=== PATIENT | female | born 1970 | race Hispanic/Latino ===

== ENCOUNTER 2018-07-29 10:50 | Day surgery (SDC) | payer BC, SELFPAY ==
--- NOTE | 2018-07-22 15:16 | HP.PCM_ITS ---
History and Physical Date of Admission: 07/29/18 Pre-Op History and Physical ? HPI: The patient is a 48 year old female presenting for pre-operative visit. She is scheduled for?Hysteroscopy D&C, possible fibroid resection, for?AUB/menorrhagia, fe def. anemia on?07/29/18. ??Procedure discussed along with risks, benefits and complications. ?Other alternatives discussed for management. Consent form signed??Yes.? PAST?MEDICAL?HISTORY PAST MEDICAL HISTORY Diagnosis Date ? Anemia ? ? Coccydynia ? ? CYST ? ? BREAST LEFT ? Depression ? ? Diabetes mellitus, type 2 (HCC) ? ? GERD (gastroesophageal reflux disease) ? ? Hyperlipidemia ? ? Hypertension ? ? Migraine, unspecified, with intractable migraine, so stated, without mention of status migrainosus ? ? Migraine ? Obesity ? ? PAST ? ? HISTORY OF EARLY LABOR/DELIVERY@ 35WKS X2 ? ? PAST?SURGICAL?HISTORY PAST SURGICAL HISTORY Procedure Laterality Date ? DELIVERY ONLY ? ? ? PAST SURGICAL HISTORY OF ? ? ? cystectomy of left breast ? ? CURRENT?MEDICATIONS ? Current Outpatient Medications: norethindrone (AYGESTIN) 5 mg tablet Take 1 tablet by mouth once daily. may increase to bid or tid as needed to slow vaginal bleeding Disp: 30 tablet Rfl: 1 meclizine (ANTIVERT) 25 mg tab Take 1 tablet by mouth three times daily as needed. as needed for dizziness Disp: 20 tablet Rfl: 0 vit [id number] (PRENATE MINI, FERR ASP GLYCIN,) 18-1-350 mg cap Take 1 Dose by mouth once daily. Disp: 30 capsule Rfl: 12 insulin detemir U-100 (LEVEMIR FLEXTOUCH U-100 INSULN) 100 unit/mL (3 mL) inpn injection Inject 28 Units subcutaneously daily at bedtime. Disp: 18 mL Rfl: 1 lisinopril (ZESTRIL, PRINIVIL) 5 mg tablet Take 0.5 tablets by mouth once daily. Disp: 45 tablet Rfl: 1 ferrous gluconate 324 mg (37.5 mg iron) tablet Take 1 tablet by mouth three times daily with meals. Disp: 90 tablet Rfl: 2 esomeprazole (NEXIUM 24HR) 20 mg capsule Take 2 capsules by mouth DAILY (6 AM). Disp: 90 capsule Rfl: 1 simvastatin (ZOCOR) 40 mg tablet Take 1 tablet by mouth daily at bedtime. For cholesterols. Disp: 90 tablet Rfl: 0 metFORMIN (GLUCOPHAGE) 1,000 mg tablet Take 1 tablet by mouth twice daily with meals. Disp: 180 tablet Rfl: 1 Insulin [place], Disposable, (BD ULTRA-FINE SURJIT PEN NEEDLES) 32 gauge x 5/32 ndle Use one needle for each dose, ?one time daily. To use with Levemir flextouch pen Disp: 100 Each Rfl: 11 aspirin, enteric coated (ASPIRIN, ENTERIC COATED) 81 mg EC tablet Take 1 tablet by mouth once daily. Disp: 90 tablet Rfl: 3 fluticasone (FLONASE) 50 mcg/actuation nasal spray Use 2 Sprays in each nostril once daily. Disp: 3 Bottle Rfl: 1 nitroglycerin sublingual (NITROQUICK) 0.4 mg SL tablet Dissolve 1 tablet under the tongue every 5 minutes as needed for Chest Pain. Disp: 1 Bottle of 25 Rfl: 0 loratadine (CLARITIN) 10 mg tablet Take 1 tablet by mouth once daily. Disp: 30 tablet Rfl: 11 COMPOUNDED PRESCRIPTION GLUCOMETER Disp: 1 Rfl: 0 COMPOUNDED PRESCRIPTION GLUCOMETER TEST STRIPS Disp: 1 DRUM Rfl: 3 Acetone (Urine) Test (KETONE URINE TEST) IN VITRO Strp USE DIRECTED Disp: 1 DRUM Rfl: 1 COMPOUNDED PRESCRIPTION LANCETS Disp: 1 BOX Rfl: 3 ? No current facility-administered medications for this visit.? ? ALLERGIES:?Seasonal Allergies ? PERSONAL HISTORY:? SOCIAL?HISTORY Social History ??Socioeconomic History ?Marital status: ?Spouse name: FABBY ?Number of children: 4 ?Years of education: 6 ?Highest education level: Not on file ??Social Needs ?Financial resource strain: Not on file ?Food insecurity - worry: Not on file ?Food insecurity - inability: Not on file ?Transportation needs - medical: Not on file ?Transportation needs - non-medical: Not on file ??Occupational History ?Occupation: HOMEMAKER ??Tobacco Use ?Smoking status: Never Smoker ?Smokeless tobacco: Never Used ??Substance and Sexual Activity ?Alcohol use: No ?Drug use: No ?Sexual activity: Yes ?Partners: Male ? control/protection: Vasectomy ??Other Topics ?Concerns: ?Not on file ??Social History Narrative ?From [place]. ?Does not speak [place]. ?Cannot read or write. ? FAMILY HISTORY:? FAMILY?HISTORY FAMILY HISTORY Problem Relation Age of Onset ? Heart Mother ?CHF ? Lipids Mother ? ? Psychiatry Mother ?depression ? Diabetes Father ? ? Cancer Brother ? ? REVIEW OF SYMPTOMS: GENERAL: denies fevers or chills ENDOCRINOLOGY: has not been on steroids Cardiology : denies palpitations or chest pain Respiratory: denies SOB or cough Hematology: denies history of prolonged bleeding or easy bruising or VTE Allergy: Denies history of personal or family history of allergy to anesthesia ? ? PHYSICAL EXAMINATION: ? VITALS:?Blood pressure 110/76, pulse 76, resp. rate 16, height 5' 1 (1.549 m), weight 203 lb (92.1 kg). ? GENERAL:??The patient is well nourished, well hydrated in no acute distress. ?, The patient is oriented to time, place, and person. NECK:?Supple. No lynphadenopathy, normal thyroid, no thyromegaly. LUNGS:?Clear to auscultation bilaterally. no wheezes, rhonchi or rales HEART:?Regular rate and rhythm, Normal heart sounds and No murmurs or gallops ? PELVIC US 06/21/18: ? Report Summary: Overall impression: uterus top normal size, two intramural fibroids noted- largest ?one with greatest dimension of 3.9cm located in lower uterine segment. Endometrial thickness 6.1mm- difficult to evaluate due to fibroids and slightly heterogenous appearance. Right ovary with 2cm complex appaering cyst- good blood flow to ovary left ovary appears normal No free fluid noted. Recommendations / therapy: recommend repeat ultrasound in 3 months to monitor right ovarian cyst for stability. Indication: Abnormal Uterine Bleeding. History: Last menstrual period: 06/08/2018. 14th day of cycle. Gynecological Ultrasonography: Uterus: normal, anteverted. Size: Longitudinal 108 mm. Anterio- posterior 66 mm. Transverse 67 mm. Volume:?? 250.1 ml. Fibroids: Fibroid 1: Size: 39 mm x 25 mm x 29 mm. Type: anterior. Position: left lower uterine segment. Fibroid 2: Size: 20 mm x 15 mm x 18 mm. Type: posterior. Position: left mid uterus. Endometrium: endometrial cavity could not be seen clearly. Endometrium thickness total: 6.1 mm. Right Ovary: normal. Visible. Right Ovary size: 31 mm x 32 mm x 22 mm. Volume: 11.4 ml. Cysts Right Ovary: Cyst 1: Mean value: 20 mm. D1: 22 mm. D2: 17 mm. D3: 22 mm. Volume: 4 ml. Complex cyst, with shadowing. Left Ovary: normal. Visible. Morphology: normal morphology. Left Ovary size: 19 mm x 17 mm x 15 mm. Volume: 2.5 ml. [place] de Sac / Pouch of Dominic: no free fluid visible. ? IMPRESSION:?menorrhagia, uterine fibroids ? PLAN:???hysteroscopy dilation and curettage, possible fibroid resection with hysteroscopic resection device, insertion of Mirena IUD.? ? I have reviewed and updated past medical and surgical history, medications and allergies? Shannan Flores M.D.
[2018-07-22 16:33] LABS: Anion Gap 5 (5-15); BUN 9 mg/dL (7-18); BUN/Creat Ratio 10.2 RATIO (10-20); Calcium,Total 8.3 mg/dL (8.5-10.1); Chloride 108 mmol/L (98-107); Creatinine, Serum 0.88 mg/dL (0.55-1.02); EST Glomerular Filtration Rate 72 mL/min (>60); Est Glom Filt Rate - Afr Amer 88 mL/min (>60); Glucose 191 mg/dL (74-106); Potassium 3.9 mmol/L (3.5-5.1); Sodium Level 138 mmol/L (136-145)
[2018-07-22 16:34] LABS: Hemoglobin A1c 7.2 % (4.2-6.3)
[2018-07-22 17:17] LABS: Hematocrit 37.9 % (37-47); Hemoglobin 11.4 g/dl (12.0-15.0); Mean Corp Hgb Conc 30.1 g/gl (32-36); Mean Corpuscular Hgb 21.8 pg (27.0-32.0); Mean Corpuscular Volume 72.5 fL (81-99); Platelet Count 251 K/mm3 (150-450); Red Blood Count 5.23 M/mm3 (4.2-5.4); White Blood Count 6.3 K/mm3 (4.4-11.0)
[2018-07-22 17:18] LABS: Scan Indicated on CBC? Y/N YES- FLAGS NOTED
[2018-07-22 17:21] LABS: International Normalized Ratio 1.1; Prothrombin Time (Protime)PT. 13.6 SECONDS (11.7-14.9)
[2018-07-22 17:41] LABS: Differential Comment SCANNED
[2018-07-29] VITALS (8 sets, daily range): BP systolic 104–127; BP diastolic 40–87; PULSE 66–94; RESP 15–18; TEMP 36.6–36.8; O2SAT 95–100
[2018-07-29 11:31] LABS: Internal QC Validated? YES +Cl - CLEAR BKGD; Pregnancy, Urine Negative Negative
[2018-07-29] MEDS: Gabapentin 600 MG Tablet PO (11:37)
[2018-07-29] MEDS: Celecoxib 200 MG Capsule PO (11:37)
--- NOTE | 2018-07-29 12:35 | EMB_PTH ---
PATIENT: AFSANEH JOHNSON LOC: [facility] [place][id number] AGE/SX: 48/F ROOM: RE07/29/[address]: Dr. Shannan Flores MD : [id number] BED: DIS: 07/29/2018 SPEC #: [id number] RECD: 07/30/18 07:32 STATUS: MARCUS DENYS #: [id number] MERY: 07/29/18 12:[address]: Shannan Flores DEPT: SURGICAL PATHOLOGY RECD BY: Chepe Hartley ENTERED: 07/30/18 10:05 SP TYPE: ENDOM BX/C ONEIDA DR: SANJAY Shrestha Tissues: Endometrium, NOS Procedures: Surgery Specimen Level IV HEADER OPERATION: Hysteroscopy, dilation and curettage, IUD insertion PRE-OP DIAGNOSIS: Abnormal uterine bleeding, menorrhagia TISSUE SUBMITTED: Endometrial curettings MICROSCOPIC DIAGNOSIS Endometrial curettings: Mildly disordered proliferative endometrium. Fragments of benign endocervical mucosa. SJ:sonny 08/02/18 MICROSCOPIC DESCRIPTION Slides are reviewed. GROSS DESCRIPTION Received in fixative is one container labeled with the patient's name and designated endometrial curettings. The specimen consists of multiple irregular fragments of light to dark bettencourt soft tissue that in aggregate measure 2 x 2 x 0.3 cm. The specimen is totally submitted in one cassette. / AM:sonny 07/30/18 TC:5 CPT: 01712
[2018-07-29 13:10] LABS: Bedside Glucose 166 mg/dL (70-110)
--- NOTE | 2018-07-29 15:23 | PCM.DC.D&C ---
Discharge Diet: No Restrictions Discharge Activity: Return to Normal Activity, May Shower, May Take a Tub Bath - in 2 weeks. Allergies/Adverse Reactions: Allergies No Known Allergies Allergy (Verified 07/22/18 09:58) Medications to take at Discharge Esomeprazole Magnesium [Nexium 24Hr] 20 mg PO DAILY 07/22/18 Insulin Detemir [Levemir FlexPen] 23 units SC QHS 07/22/18 Lisinopril [Prinivil] 2.5 mg PO DAILY 07/22/18 Metformin HCl [Glucophage] 1,000 mg PO BIDCM 07/22/18 Simvastatin [Zocor] 40 mg PO QHS 07/22/18 Hydrocodone Bitart/Apap 5-325 [[place] 5/325] 1 - 2 tablet PO Q6H PRN PRN 2 Days #8 tablet 07/29/18 Ibuprofen [Motrin] 600 mg PO Q6H PRN #60 tablet 07/29/18 The following prescriptions were given: Hydrocodone Bitart/Apap 5-325 [[place] 5/325] 1 - 2 tablet PO Q6H PRN PRN 2 Days #8 tablet PRN Reason: Mild-Moderate Pain (1-5/10) Ibuprofen [Motrin] 600 mg PO Q6H PRN #60 tablet PRN Reason: Pain Orders to be completed after discharge: Type & Screen Time Frame: 07/22/18, Facility: [facility], Location: Laboratory Partial Thromboplast Time Time Frame: 07/22/18, Location: Laboratory Hemoglobin A1c Time Frame: 07/22/18, Location: Laboratory Basic Metabolic Profile (BMP) Time Frame: 07/22/18, Location: Laboratory CBC-Complete Blood Cnt No Diff Time Frame: 07/22/18, Location: Laboratory Prothrombin Time w/INR Time Frame: 07/22/18, Location: Laboratory Primary Care Physician: Rowan Sidhu PA [Primary Care Provider] - Test Results: Test results from this visit will be discussed in further detail at your follow-up appointment, if applicable. Please Follow Up With: Shannan Flores MD - [phone] When: 4-6 weeks or as needed
--- NOTE | 2018-07-29 15:42 | OP.PCM_ITS ---
Report of Operation Date of Procedure: 07/29/18 Pre-Operative Diagnosis: Menorrhagia, uterine fibroids, chronic blood loss fe deficiency anemia Post-Operative Diagnosis: same Surgery/Procedure Performed:: Hysteroscopy, dilation and curettage and insertion of Mirena intrauterine device Description of Surgical Findings:: Well-appearing uterine cavity, cervix and vagina. Both tubal ostia were identified. No polyps or fibroids noted in the endometrial cavity. supervisor electronics testing: None Type of Anesthesia:: General Anesthesiologist: Henny Taylor Special Medications: none Specimen's removed: endometrial curetteings Drains: none Estimated Blood Loss (mL): 10cc Fluids Replaced: 1500cc Description of Procedure: The patient was taken to the OR where she was prepped and draped in dorsal lithotomy position. The weighted speculum was placed in the vagina and the anterior lip of the cervix was grasped with a single-tooth tenaculum. A paracervical block was administered with 1% lidocaine with 1-100,000 epinephrine solution. The cervix was dilated serially with Hegar dilators. The 7mm hysteroscope was placed into the uterine cavity and the above findings were noted. Bilateral tubal ostia were identified. The hysteroscope was removed. A gentle sharp curettage was done of the uterine cavity. The endometrial curettings were handed off. The Mirena intrauterine device was inserted in the usual sterile fashion. The strings were trimmed to 2 cm. Uterus sounded to 10 cm. the instruments were removed from the vagina. The specimen was handed off and sent to pathology. All sponge and needle counts were correct. Vaginal sweep was performed by me. The patient was awakened and taken to the recovery room in stable condition. Hysteroscopic ins: 100cc normal saline Hysteroscopic outs:100cc Findings: Endometrial cavity: Normal, no fibroids or polyps noted Cervix: Normal Vagina: Normal Grafts/Implants Used: Mirena IUD - Complications none - Admit VTE Documentation VTE Present on Admission: No VTE Mechan Device Prophylaxis: SCD's VTE Pharm Prophylaxis ordered?: No Reason prophylaxis not ordered:: Procedure Not Indicated
--- NOTE | 2018-07-29 16:20 | RAD_ITS ---
STUDY: X-RAY CHEST REASON FOR EXAM: Female, 48 years old. Increased shortness of breath after surgery. TECHNIQUE: Single AP portable upright view of the chest. COMPARISON: None. FINDINGS: The lungs are clear, but under expanded. There is no demonstrated pleural abnormality. There is borderline to mild cardiac enlargement. Normal mediastinum and alessandro. Normal visualized pulmonary arteries. Normal visualized aortic arch and descending thoracic aorta. Normal visualized thoracic spine. Normal visualized ribs, clavicles, and shoulders. There is no demonstrated abnormality of the visualized soft tissue structures of the upper abdomen. RAD/Chest 1 View (Portable) IMPRESSION: Suboptimal inspiratory effort. Borderline to mild cardiac enlargement. No pneumonic infiltrate or CHF. Electronically Signed: Regino Todd MD at 17:17 EDT , Service support ,
[2018-07-29] MEDS: Ipratropium/Albuterol Sulfate 3 ML AMPUL.NEB INHALATION (16:21)
== END 2018-07-29 18:01 | disposition home or self-care (01) ==
LOC: SDC 10:50 → AC 10:52
PROVIDERS: Anesthesiology; Family Provider Physician Assistant; PCP Physician Assistant; Referring Provider Obstetrics & Gynecology; Visit Provider Obstetrics & Gynecology
PROC: (CPT 58300; principal; 2018-07-29 12:20)
DX: N92.0 Excessive and frequent menstruation with regular cycle (principal); D50.9 Iron deficiency anemia, unspecified; D50.0 Iron deficiency anemia secondary to blood loss (chronic); E11.9 Type 2 diabetes mellitus without complications; I10 Essential (primary) hypertension; E78.00 Pure hypercholesterolemia, unspecified; K21.9 Gastro-esophageal reflux disease without esophagitis; E66.9 Obesity, unspecified; Z79.4 Long term (current) use of insulin; Z79.82 Long term (current) use of aspirin; Z79.899 Other long term (current) drug therapy
CPT/HCPCS: 58300; 58558; 36415; 71045; 80048; 81025; 82962; 83036; 85027; 85610; 85730; 86850; 86900; 88305; 94640; J7120; J2405

== ENCOUNTER 2021-10-23 09:46 | Emergency (ER) | payer OTHER, SELFPAY ==
[2021-10-23 09:46] VITALS: BP 120/61; PULSE 70; RESP 18; TEMP 36.3; O2SAT 98; BMI 31.1
--- NOTE | 2021-10-23 10:16 | EKG12_ITS ---
Test Reason : WEAKNESS Blood Pressure : / mmHG Vent. Rate : 063 BPM Atrial Rate : 063 BPM P-R Int : 152 ms QRS Dur : 082 ms QT Int : 428 ms P-R-T Axes : 038 -82 027 degrees QTc Int : 437 ms Normal sinus rhythm Left axis deviation Low voltage QRS Poor R wave progression Abnormal ECG Confirmed by EVANS MONTANO, JOSE ALFREDO ([id number]), international editorial producer NASIR STEINER ([id number]) on 10/28/2021 1:10:02 PM Referred By: Confirmed By:JOSE ALFREDO KRUEGER MD
--- NOTE | 2021-10-23 10:20 | ED.VIS.GI ---
HPI HPI - GI History of Present Illness Chief Complaint: Nausea/Vomiting Informant: patient and other (Voice Pathologist) Nausea/Vomiting/Emesis GI Symptom: Positive for Nausea and Vomiting Onset: Yesterday Diarrhea/Melena/Hematochezia GI Symptom: Positive for Diarrhea; Negative for Melena or Hematochezia Onset: Yesterday Associated Symptoms Associated Symptoms: Negative for Dysuria, Frequency, Hematuria or Urgency Narrative Narrative: Patient with nausea vomiting and diarrhea that started yesterday. Difficult to keep anything down but she did eat a little something last night and took her insulin. She is a type II diabetic. Has not been checking her blood sugars at all. She is on oral medications and was started on insulin last month and has felt nauseated ever since, but became worse with vomiting yesterday. No fevers or chills. No known sick contacts. No abdominal pain, chest pain, shortness of breath. She is urinating but not a lot. [facility] Medical History Diabetes Home Medications esomeprazole magnesium 20 mg tablet,delayed release (Nexium 24HR) 40 mg PO DAILY 07/22/18 [History Last Taken Unknown] insulin detemir U-100 100 unit/mL (3 mL) subcutaneous pen (Levemir FlexTouch U-100 Insulin) 40 units subcut QHS 07/22/18 [History Last Taken Unknown] metformin 1,000 mg tablet 1,000 mg PO BIDCM 07/22/18 [History Last Taken Unknown] ibuprofen 600 mg tablet 600 mg PO Q6H PRN Pain ##60 07/29/18 [Rx Last Taken Unknown] aspirin 81 mg tablet 81 mg PO DAILY 10/23/21 [History Last Taken Unknown] celecoxib 100 mg capsule (Celebrex) 100 mg PO BID 10/23/21 [History Last Taken Unknown] dulaglutide 1.5 mg/0.5 mL subcutaneous pen injector (Trulicity) 1.5 mg subcut QWEEK 10/23/21 [History Last Taken Unknown] norethindrone acetate 5 mg tablet (Aygestin) 5 mg PO DAILY 10/23/21 [History Last Taken Unknown] ondansetron 4 mg disintegrating tablet 8 mg PO Q8H PRN PRN Nausea #20 tabs 10/23/21 [Rx Last Taken Unknown] Allergy/AdvReac Type Severity Reaction Status Date / Time No Known Allergies Allergy Verified 10/23/21 10:19 Social History Smoking Status: Never smoker ROS ROS ED Constitutional Constitutional ED: Reports malaise; Denies chills or fever(s) Eyes Eyes: Denies change in vision or diplopia ENT ENT ED: Denies rhinorrhea or sore throat Cardiovascular Cardiovascular: Denies chest pain or palpitations Respiratory/Chest Respiratory/Chest: Denies cough or dyspnea Gastrointestinal Gastrointestinal: Reports diarrhea, nausea and vomiting; Denies abdominal pain Genitourinary Genitourinary ED: Denies dysuria or hematuria Musculoskeletal Musculoskeletal: Denies back pain or neck pain Integumentary Denies abscess or rash Neurologic Neurologic: Denies headache(s), paresthesias or weakness Psychiatric Psychiatric: Denies anxiety or suicidal thoughts EXAM Physical Exam Const Vital Signs: 10/23/21 09:46 10/23/21 12:23 Temperature 97.3 F L Temperature Source Temporal Pulse Rate 70 59 L Respiratory Rate 18 Blood Pressure 120/61 115/71 Blood Pressure Mean 80 85 Pulse Ox 98 Oxygen Delivery Method Room Air Positive well nourished, well developed and obese Constitutional Narrative: Ill-appearing, no distress General Appearance ED: well developed Nutritional Appearance: obese HEENT Reports moist mucous membranes normocephalic and atraumatic Eyes PERRL and EOMs intact bilaterally Neck full ROM and supple Resp normal respiratory effort and clear to auscultation bilaterally Cardio regular rate, regular rhythm and no murmurs Rate: Negative for tachycardic GI non-tender and non-distended Auscultation: normoactive bowel sounds Palpation: soft Back/Spine no CVA tenderness General Back: other FROM Extremity normal to inspection General Extremety ED: Negative for edema, pulses abnormal or tenderness General Extremity: Negative for edema or pulses abnormal Neuro oriented x3, CN's II-XII intact bilaterally, no sensory deficits noted and gait normal Sensorium / Orientation: awake and alert Motor Exam: strength 5/5 throughout Skin no rashes or lesions noted and no wounds MDM MDM MDM Narrative Medical decision making narrative: Patient was given IV fluids, Zofran, insulin. On reevaluation her blood sugar is down to 241, she is tolerating oral fluids, she feels much better. Given the normal labs except for glucose, I suspect this is a viral infection. Reassured, given a prescription for Zofran, advised to check her blood sugars at home and take her insulin, decreasing the dose if she needs to if she is not able to eat close to a normal diet, she has questions about the dose she is advised to call her PCP, she is comfortable with this plan. All communication was done through a live lamp decorator. Lab Data Attestation: I reviewed the patient's lab results. Labs: Laboratory Results - last 24 hr 10/23/21 10/23/21 10/23/21 10:10 10:10 10:14 WBC 7.6 RBC 5.09 Hgb 14.6 Hct 43.7 MCV 85.9 MCH 28.7 MCHC 33.4 RDW Std Deviation 39.8 RDW Coeff of Guru 12.8 Plt Count 280 MPV 10.2 Immature Gran % (Auto) 0.400 Neut % (Auto) 77.4 H Lymph % (Auto) 16.1 L [place] % (Auto) 5.3 Eos % (Auto) 0.5 Baso % (Auto) 0.3 Absolute Neuts (auto) 5.9 Absolute Lymphs (auto) 1.22 Nucleated RBC % 0 Sodium 137 Potassium 3.9 Chloride 103 Carbon Dioxide 28.0 Anion Gap 6 BUN 10 Creatinine 0.54 L Estim Creat Clear Calc 105.24 Est GFR (MDRD) Af Amer 151 Est GFR (MDRD) Non-Af 124 BUN/Creatinine Ratio 18.3 Glucose 278 H Calcium 8.6 Total Bilirubin 0.60 AST 10 L ALT 18 Alkaline Phosphatase 96 Troponin I High Sens 3 Total Protein 6.9 Albumin 3.1 L Globulin 3.8 Albumin/Globulin Ratio 0.8 L Lipase 55 L Urine Color Urine Clarity Urine pH Ur Specific [place] Urine Protein Urine Glucose (UA) Urine Ketones Urine Occult Blood Urine Nitrite Urine Bilirubin Urine Urobilinogen Ur Leukocyte Esterase Urine RBC Urine WBC Ur Squamous Epith Cells Urine Bacteria Urine Mucus POC Glucose 309 H 10/23/21 10/23/21 11:30 11:34 WBC RBC Hgb Hct MCV MCH MCHC RDW Std Deviation RDW Coeff of Guru Plt Count MPV Immature Gran % (Auto) Neut % (Auto) Lymph % (Auto) [place] % (Auto) Eos % (Auto) Baso % (Auto) Absolute Neuts (auto) Absolute Lymphs (auto) Nucleated RBC % Sodium Potassium Chloride Carbon Dioxide Anion Gap BUN Creatinine Estim Creat Clear Calc Est GFR (MDRD) Af Amer Est GFR (MDRD) Non-Af BUN/Creatinine Ratio Glucose Calcium Total Bilirubin AST ALT Alkaline Phosphatase Troponin I High Sens Total Protein Albumin Globulin Albumin/Globulin Ratio Lipase Urine Color Yellow Urine Clarity Sl. Cloudy Urine pH 6.5 Ur Specific [place] 1.010 Urine Protein Negative Urine Glucose (UA) 1000 H Urine Ketones 5 H Urine Occult Blood Negative Urine Nitrite Negative Urine Bilirubin Negative Urine Urobilinogen Normal Ur Leukocyte Esterase 25 H Urine RBC 0 SEEN Urine WBC 0-5 SEEN Ur Squamous Epith Cells 0-5 SEEN Urine Bacteria RARE Urine Mucus RARE POC Glucose 241 H EKG Initial EKG: Attestation: I personally reviewed and interpreted this EKG as follows: Interpretation: Sinus Rhythm, No Acute Injury Pattern and LAFB Discharge Plan Triage Chief Complaint: Nausea/Vomiting ED Provider: Rustam Rios Dx/Rx/DC Orders Clinical Impression: Nausea, vomiting, and diarrhea, Hyperglycemia due to type 2 diabetes mellitus Instructions: ED Diabetic Hyperglycemia, ED Vomiting and Diarrhea ... Prescriptions: New ondansetron [ondansetron] 4 MG tablet 8 mg PO Q8H PRN PRN (Reason: Nausea) Qty: 20 0RF No Action metformin 1,000 MG tablet 1,000 mg PO BIDCM Levemir FlexTouch U-100 Insuln 100 UNITS/ML insulin pen 40 units subcut QHS esomeprazole magnesium [Nexium 24HR] 20 MG tablet,delayed release (DR/EC) 40 mg PO DAILY ibuprofen 600 MG tablet 600 mg PO Q6H PRN (Reason: Pain) Qty: 60 1RF aspirin 81 mg Tablet 81 mg PO DAILY norethindrone acetate [Aygestin] 5 mg Tablet 5 mg PO DAILY celecoxib [Celebrex] 100 mg Capsule 100 mg PO BID Trulicity 1.5 mg/0.5 mL Pen Injector 1.5 mg SUBCUT QWEEK Primary Care Provider: Rowan Sidhu Referrals: Rowan Sidhu PA [Primary Care Provider] - 3-5 Days Disposition Disposition: Home, Self Care Discharge Date/Time: 10/23/21 12:58
[2021-10-23 10:21] LABS: Bedside Glucose 309 mg/dL (74-106)
--- NOTE | 2021-10-23 10:24 | NURSING ---
NO OLD EKGS
[2021-10-23] MEDS: 0.9% Normal Saline 1,000 ML 1000 ML IV (10:32)
[2021-10-23] MEDS: Ondansetron 4 MG/2 ML Vial IV (10:32)
[2021-10-23] MEDS: Insulin Lispro 100 UNIT/ML INSULN.PEN 8 UNIT SC (10:32)
[2021-10-23 10:33] LABS: Absolute Lymphocyte Count 1.22 X10^3/uL (0.83-4.51); Absolute Neutrophil Count 5.9 X10^3/uL (2.0-7.7); Basophil# 0.02 X10^3/uL; Basophil% 0.3 % (0-1); Eosinophil# 0.04 X10^3/uL; Eosinophils% 0.5 % (0-5); Hematocrit 43.7 % (37-47); Hemoglobin 14.6 g/dL (12.0-15.0); Lymphocyte # 1.22 X10^3/ul (0.83-4.51); Lymphocyte % 16.1 % (19-41); Mean Corp Hgb Conc 33.4 g/dL (32-36); Mean Corpuscular Hgb 28.7 pg (27.0-32.0); Mean Corpuscular Volume 85.9 fL (81-99); Mean Platelet Vol. 10.2 fl (6.2-12.0); Monocyte% 5.3 % (0-10); NRBC Flagged by Analyzer 0 % (0-5); Neutrophil # 5.87 X10^3/uL (2.7-7.7); Neutrophil % 77.4 % (47-70); Platelet Count 280 K/mm3 (150-450); RBC Distribution Width CV 12.8 % (11.6-14.6); RBC Distribution Width SD 39.8 fl (35.1-43.9); Red Blood Count 5.09 M/mm3 (4.2-5.4); White Blood Count 7.6 K/mm3 (4.4-11.0)
[2021-10-23 11:00] LABS: ALB/GLOB Ratio 0.8 RATIO (0.9-2.4); AST(SGOT) 10 U/L (15-37); Alanine Aminotransfer ALT/SGPT 18 U/L (13-56); Albumin, Serum 3.1 g/dL (3.2-5.0); Alkaline Phosphatase 96 U/L (45-117); Anion Gap 6 (5-15); BUN 10 mg/dL (7-18); BUN/Creat Ratio 18.3 RATIO (10-20); Calcium,Total 8.6 mg/dL (8.5-10.1); Chloride 103 mmol/L (98-107); Creatinine, Serum 0.54 mg/dL (0.55-1.02); EST Glomerular Filtration Rate 124 mL/min (>60); Est Glom Filt Rate - Afr Amer 151 mL/min (>60); Estimated Creatinine Clearance 105.24 ml/min; Globulin 3.8 g/dL (2.2-4.2); Glucose 278 mg/dL (74-106); Lipase 55 U/L (73-393); Potassium 3.9 mmol/L (3.5-5.1); Protein, Total 6.9 g/dL (6.4-8.2); Sodium Level 137 mmol/L (136-145); Troponin-I HS 3 pg/mL (3.0-54.0)
[2021-10-23 11:35] LABS: Red Blood Cells-Urine 0 SEEN /hpf (0-5)
[2021-10-23 11:36] LABS: Color, Urine Yellow (Yellow); Glucose, Dipstick 1000 mg/dl (Normal); Ketone-Dipstick 5 mg/dl (Negative); Leukocyte Esterase-Dipstick 25 /ul (Negative); Nitrite-Dipstick Negative (Negative); Occult Blood-Urine Negative /ul (Negative); Protein-Dipstick Negative (Negative); Urine Bilirubin Dipstick Negative (Negative); Urine Clarity Sl. Cloudy (Clear); Urine Urobilinogen Normal (Normal); Urine pH 6.5 (5.0 - 8.0)
[2021-10-23 11:41] LABS: Bedside Glucose 241 mg/dL (74-106)
[2021-10-23 11:43] LABS: Bacteria RARE /hpf (None Seen); Mucous, Urine RARE /hpf (<or=2+); Squamous Epithelial Cells - UA 0-5 SEEN /hpf (5-10); White Blood Cells 0-5 SEEN /hpf (0-5)
[2021-10-23 12:23] VITALS: BP 115/71; PULSE 59
== END 2021-10-23 12:58 | disposition home or self-care (01) ==
PROVIDERS: Emergency Provider Emergency Medicine; PCP Physician Assistant; Visit Provider Emergency Medicine
DX: R11.2 Nausea with vomiting, unspecified (principal); E11.65 Type 2 diabetes mellitus with hyperglycemia; R19.7 Diarrhea, unspecified; E66.9 Obesity, unspecified; Z79.4 Long term (current) use of insulin; Z79.82 Long term (current) use of aspirin; Z79.899 Other long term (current) drug therapy
CPT/HCPCS: 80053; 81001; 82962; 83690; 84484; 85025; 93005; 96361; 96374; 99283; J7030; A4216; J2405

== ENCOUNTER 2025-02-07 17:40 | Emergency (ER) | payer BC, SELFPAY ==
[2025-02-07 17:42] VITALS: BP 157/90; PULSE 64; RESP 12; TEMP 35.8; O2SAT 99; BMI 34.7
--- NOTE | 2025-02-07 18:15 | CT_ITS ---
PROCEDURE: CT BRAIN/HEAD WITHOUT CONTRAST 02/07/2025 REASON FOR EXAM: ACUTE ALTERED MENTAL STATUS AND HEADACHE TECHNIQUE: Procedure Code: CTBR Modality: CT Procedure: BRAIN/HEAD WITHOUT CONTRAST Coronal and Sagittal reconstruction series were provided. One or more dose reduction techniques were used (e.g., Automated exposure control, adjustment of the mA and/or kV according to patient size, use of iterative reconstruction technique. RADIATION DOSE SUMMARY: CTDlvol: 44.99 mGy DLP: 812.98 mGycm COMPARISON: None. FINDINGS: No acute intracranial hemorrhage, extra-axial collection, mass effect or evidence of acute infarct. Ventricles and subarachnoid spaces are normal in size. Absent [place] ocular lenses. Intact skull base and calvarium. Well-aerated paranasal sinuses and mastoid air cells. CT/Brain/Head without Contrast IMPRESSION: No acute intracranial abnormality. Reading Location: [id number]
[2025-02-07 18:41] VITALS: BP 157/79; PULSE 66; RESP 24; O2SAT 98
[2025-02-07 18:43] LABS: AST(SGOT) 12 U/L (<=31); Alanine Aminotransfer ALT/SGPT 11 U/L (<=34); Albumin, Serum 4.2 g/dL (3.5-5.0); Alkaline Phosphatase 117 U/L (35-104); Anion Gap 15 (5-15); BUN 14 mg/dL (4-19); BUN/Creat Ratio 23.4 RATIO (10-20); Calcium,Total 9.4 mg/dL (7.6-11.0); Carbon Dioxide 23.2 mmol/L (21.0-32.0); Chloride 96 mmol/L (98-108); Estimated Creatinine Clearance 118.27 ml/min (50-250); Globulin 3.2 g/dL (2.2-4.2); Glucose 377 mg/dL (70-99); Potassium 3.9 mmol/L (3.3-5.1)
--- NOTE | 2025-02-07 18:58 | EX.ED.DYSGE1 ---
HPI History of Present Illness Chief Complaint: Headache Detail of Chief Complaint: Acute change in mental status and headache x 8 days Informant: family (Son interpreted. She had very little to say or answer to questions) Limited: other (Concerned this may represent a functional neurologic event) Onset/Context/Timing Onset: Today (Headache was worse at 1400. Acute change in mental status 1 hour prior to arrival.) and Days (Headache. Apparently started 8 days ago and is generalized) Context: - (Reportedly worse at 1400% on.) Timing: Continuous Quality: Unable to determine Location: Generalized Current Severity: Unable to determine Maximum Severity: Unable to determine Worsened by: Unable to determine Relieved by: Reportedly nothing Associated Symptoms Associated Symptoms: Unable to determine Narrative Narrative: Patient is a 54-year-old Qatari-speaking woman with history of type 2 diabetes on insulin, hormonal therapy and antiemetic who arrived by ambulance because of altered mental status. Per son she had a headache that started 8 days ago. The headache got worse around 1400. Upon arrival she is supine head turned to the left moaning. She did not open her eyes even to noxious stimuli. When her hand was placed above her head it fell to her right side. Prior similar symptoms: No Recent Illness/Hospitalization: No [facility] Medical History HTN (hypertension) Migraine Diabetes Home Medications ?Medication ?Instructions ?Recorded ?Last Taken ?Type esomeprazole magnesium 20 mg 40 mg PO DAILY 07/22/18 Unknown History tablet,delayed release (Nexium 24HR) insulin detemir U-100 100 unit/mL 40 units subcut QHS 07/22/18 Unknown History (3 mL) subcutaneous pen (Levemir FlexTouch U-100 Insulin) metformin 1,000 mg tablet 1,000 mg PO BIDCM 07/22/18 Unknown History ibuprofen 600 mg tablet 600 mg PO Q6H PRN Pain ##60 07/29/18 Unknown Rx aspirin 81 mg tablet 81 mg PO DAILY 10/23/21 Unknown History celecoxib 100 mg capsule (Celebrex) 100 mg PO BID 10/23/21 Unknown History dulaglutide 1.5 mg/0.5 mL 1.5 mg subcut QWEEK 10/23/21 Unknown History subcutaneous pen injector (Trulicity) norethindrone acetate 5 mg tablet 5 mg PO DAILY 10/23/21 Unknown History (Aygestin) ondansetron 4 mg disintegrating 8 mg (2 x 4 mg) PO Q8H PRN PRN 10/23/21 Unknown Rx tablet Nausea #20 tabs Allergy/AdvReac Type Severity Reaction Status Date / Time No Known Allergies Allergy Verified 02/07/25 17:42 Social History Smoking Status: Never smoker ROS ROS ED Review of Systems ROS Unobtainable: due to mental status EXAM Physical Exam Const Vital Signs: 02/07/25 17:42 02/07/25 18:41 02/07/25 19:00 Temperature 96.5 F L Temperature Source Axillary Pulse Rate 64 66 70 Respiratory Rate 12 24 H 19 H Blood Pressure 157/90 H 157/79 H 145/79 H Blood Pressure Mean 112 105 101 Pulse Ox 99 98 95 Oxygen Delivery Method Room Air Room Air Room Air 02/07/25 20:00 02/07/25 21:00 Temperature Temperature Source Pulse Rate 70 95 Respiratory Rate 38 H 28 H Blood Pressure 135/65 H 144/71 H Blood Pressure Mean 88 95 Pulse Ox 95 94 Oxygen Delivery Method Room Air Room Air Positive well nourished and well developed General Appearance ED: well developed and NAD; Negative for cyanotic or diaphoretic HEENT Reports TM's clear and moist mucous membranes HEENT Narrative: Posterior pharynx appears normal. Nares patent. Ears normal. Patient noted to have a pustule inferior to the left side of her lower lip. There is no other facial lesions noted. Tympanic Membrane ED: Yes TM's clear Eyes PERRL General Eye ED: Yes other Other Details: Pupils are equal round reactive to light. Unable to determine if there is any problems with movement. She has a negative doll's eye response. Ears normal. Neck no lymphadenopathy, supple and no JVD Neck Narrative: There is no JVD noted. Trachea is midline. There is no inspiratory stridor. Chest Wall palpation of chest normal Resp normal respiratory effort and clear to auscultation bilaterally Cardio regular rate, regular rhythm, S1 normal heart sound, S2 normal heart sound and no murmurs GI normal to inspection, nondistended, normoactive bowel sounds, non-tender, non-distended and no masses; Negative for hepatosplenomegaly Neuro Neuro Narrative: Unable to determine. When patient was asked to move her right hand she did not. When he was asked to do finger-nose to finger she would not move her right side if she raised her left index finger. She moved her extremities to noxious stimuli. And as noted when her hand was placed above her head it avoided her head and came down on her right side. Psych Psych Narrative: Unable to determine Skin Skin Narrative: Pustule right side of face. She has some erythematous macular raised dots noted left shoulder region. There is no blistering. There is no ulcerations noted. Unable to examine her back because I cannot turn her left or on my own. I have nurse undress her and look at her back since reportedly she has had shingles for 3 years. MDM MDM MDM Narrative Medical decision making narrative: Differential diagnosis is functional neurologic event, intracranial pathology, sepsis, electrolyte abnormality, hypoglycemia, D KA. Workup included CAT scan of the head, appropriate blood work including urine. Sensors no history of drug or alcohol use this was not obtained. Lab Data Attestation: I reviewed the patient's lab results. Lab results narrative: CBC is normal. Basic metabolic panel reveals an elevated glucose of 377 with a normal CO2 anion gap. Lactate is normal. Liver enzymes are unremarkable. Urine reveals bacteria without pyuria. She also has ketones noted. Labs: Laboratory Results - last 24 hr 02/07/25 02/07/25 02/07/25 17:49 18:05 19:45 WBC 7.0 RBC 5.25 Hgb 14.7 Hct 43.9 MCV 83.6 MCH 28.0 MCHC 33.5 RDW Std Deviation 38.1 RDW Coeff of Guru 12.7 Plt Count 294 MPV 10.9 Immature Gran % (Auto) 0.400 Neut % (Auto) 68.2 Lymph % (Auto) 25.8 [place] % (Auto) 4.4 Eos % (Auto) 0.9 Baso % (Auto) 0.3 Absolute Neuts (auto) 4.8 Absolute Lymphs (auto) 1.81 Nucleated RBC % 0 Sodium 134 Potassium 3.9 Chloride 96 L Carbon Dioxide 23.2 Anion Gap 15 BUN 14 Creatinine 0.59 L Estim Creat Clear Calc 118.27 Est GFR (MDRD) Non-Af 107 BUN/Creatinine Ratio 23.4 H Glucose 377 H Lactic Acid 1.0 Calcium 9.4 Total Bilirubin 0.73 AST 12 ALT 11 Alkaline Phosphatase 117 H Total Protein 7.4 Albumin 4.2 Globulin 3.2 Albumin/Globulin Ratio 1.3 Urine Color Yellow Urine Clarity Clear Urine pH 6.5 Ur Specific [place] 1.015 Urine Protein Negative Urine Glucose (UA) 1000 H Urine Ketones 150 A* Urine Occult Blood Negative Urine Nitrite Negative Urine Bilirubin Negative Urine Urobilinogen Normal Ur Leukocyte Esterase Negative Urine RBC 0 SEEN Urine WBC 0 SEEN Ur Squamous Epith Cells 0-5 SEEN Urine Bacteria 1+ Urine Mucus 0 SEEN Radiography Diagnostic Testing: Clinical Impression(s) from Imaging Studies Brain CT 02/07/25 18:15 IMPRESSION: No acute intracranial abnormality. Reading Location: [facility] CT was reviewed report was read. Treatment and Re-Evaluation :: Went into evaluate patient at 2147. She is awake. She is answering questions. She is moving all extremities. She states she feels better Discharge Plan Triage Chief Complaint: Headache ED Provider: Ramone Wetzel Dx/Rx/DC Orders Clinical Impression: Neurologic complaint, functional, Type 2 diabetes mellitus with hyperglycemia, Elevated blood-pressure reading without diagnosis of hypertension, Hypothermia Instructions: ED Diabetic Hyperglycemia, ED Hypertension, To Be Confirmed, ED Functional Neurological ... Prescriptions: No Action metformin 1,000 MG tablet 1,000 mg PO BIDCM Levemir FlexTouch U100 Insulin 100 UNITS/ML insulin pen 40 units subcut QHS esomeprazole magnesium [Nexium 24HR] 20 MG tablet,delayed release (DR/EC) 40 mg PO DAILY ibuprofen 600 MG tablet 600 mg PO Q6H PRN (Reason: Pain) Qty: 60 1RF aspirin 81 mg Tablet 81 mg PO DAILY norethindrone acetate [Aygestin] 5 mg Tablet 5 mg PO DAILY celecoxib [Celebrex] 100 mg Capsule 100 mg PO BID Trulicity 1.5 mg/0.5 mL Pen Injector 1.5 mg SUBCUT QWEEK ondansetron [ondansetron] 4 MG tablet 8 mg PO Q8H PRN PRN (Reason: Nausea) Qty: 20 0RF Primary Care Provider: Kiera Alvarez NP Referrals: Kiera Alvarez NP, [facility] [Primary Care Provider, Medical] - 1-2 Weeks Activity Restrictions/Additional Instructions: 1. Your blood pressure has been elevated during your stay. You need to follow-up with your doctor for blood pressure check in 1 to 2 weeks Print Language: Qatari Disposition Disposition: Home, Self Care
[2025-02-07 19:00] VITALS: BP 145/79; PULSE 70; RESP 19; O2SAT 95
[2025-02-07 19:02] LABS: Hematocrit 43.9 % (37-47); Hemoglobin 14.7 g/dL (12.0-15.0); Immature Granulocytes Count 0.030 X10^3/uL (0.0-0.0); Mean Corp Hgb Conc 33.5 g/dL (32-36); Mean Corpuscular Volume 83.6 fL (81-99); Mean Platelet Vol. 10.9 fl (6.2-12.0); NRBC Flagged by Analyzer 0 % (0-5); Platelet Count 294 K/mm3 (150-450); RBC Distribution Width CV 12.7 % (11.6-14.6); RBC Distribution Width SD 38.1 fl (35.1-43.9); Red Blood Count 5.25 M/mm3 (4.2-5.4); White Blood Count 7.0 K/mm3 (4.4-11.0)
[2025-02-07 19:58] LABS: Mucous, Urine 0 SEEN /hpf (<or=2+); Red Blood Cells-Urine 0 SEEN /hpf (0-5)
[2025-02-07 20:00] VITALS: BP 135/65; PULSE 70; RESP 38; O2SAT 95
[2025-02-07 20:15] LABS: Color, Urine Yellow (Yellow); Glucose, Dipstick 1000 mg/dl (Normal); Leukocyte Esterase-Dipstick Negative /ul (Negative); Nitrite-Dipstick Negative (Negative); Occult Blood-Urine Negative /ul (Negative); Protein-Dipstick Negative (Negative); Specific Gravity, Urine 1.015 (1.002-1.030); Urine Bilirubin Dipstick Negative (Negative)
[2025-02-07 20:17] LABS: Ketone-Dipstick 150 mg/dl (Negative)
[2025-02-07 20:30] LABS: Squamous Epithelial Cells - UA 0-5 SEEN /hpf (5-10)
[2025-02-07 21:00] VITALS: BP 144/71; PULSE 95; RESP 28; O2SAT 94
[2025-02-07 22:14] VITALS: BP 144/71; PULSE 78; RESP 24; TEMP 36.1; O2SAT 100
== END 2025-02-07 22:15 | disposition home or self-care (01) ==
PROVIDERS: Emergency Provider Emergency Medicine; PCP Registered Nurse; Visit Provider Emergency Medicine
DX: R29.818 Other symptoms and signs involving the nervous system (principal); E11.65 Type 2 diabetes mellitus with hyperglycemia; Z79.4 Long term (current) use of insulin; R03.0 Elevated blood-pressure reading, without diagnosis of hypertension; R51.9 Headache, unspecified; R68.0 Hypothermia, not associated with low environmental temperature; Z79.84 Long term (current) use of oral hypoglycemic drugs
CPT/HCPCS: 70450; 80053; 81001; 82962; 83605; 85025; 99285; P9612; A4216